=== PATIENT | female | born 1975 | race African-American/Black ===

== ENCOUNTER 2022-07-22 09:49 | Emergency (ER) | payer OTHER ==
[2022-07-22] MEDS ORDERED: ACETAMINOPHEN 325 MG TABLET ONE (10:26)
[2022-07-22] MEDS ORDERED: ONDANSETRON 4 MG/2 ML VIAL ONE (10:26)
[2022-07-22 10:37] LABS: Absolute Lymphocytes (CBC) 2.8 K/uL (0.7-4.9); Hematocrit 39.3 % (36.0-45.0); Lymphocytes % 36.8 % (15.3-44.8); MPV 7.8 fL (7.6-11.3); RBC Red Blood Cell Count 4.51 M/uL (3.86-4.86)
[2022-07-22 10:50] LABS: Arterial Blood Carboxyhemoglob 4.9 % (0-1.5); Blood Gas Oxyhemoglobin 79.3 % (94-97); Blood O2 Saturation 84.6 % (92-98.5)
[2022-07-22 10:55] LABS: Albumin 3.4 g/dL (3.4-5.0); Bilirubin Direct 0.1 mg/dL (0-0.2); Bilirubin Total 0.4 mg/dL (0.2-1.0); Magnesium 2.2 mg/dL (1.8-2.4); Protein, Total 7.6 g/dL (6.4-8.2)
[2022-07-22 14:27] LABS: Blood O2 Saturation 61.5 % (92-98.5)
--- NOTE | 2022-07-22 14:32 | ER ---
Nurse's Notes [facility] Name: Ginger Vogel Age: 47 yrs Sex: Female : 1975 Arrival Date: 07/22/2022 Time: 09:49 Bed 5 Private MD: Diagnosis: Toxic effect of carbon monoxide from other source, accidental (unintentional), initial encounter Presentation: 07/22 09:57 Chief complaint: Patient's son or daughter states: pt was at work at [employer] and they iw were told there was a CO2 leak, pt became dizzy, almost passed out, nauseated, and has a headache, she has been at work since 4 am. Coronavirus screen: At this time, the client does not indicate any symptoms associated with coronavirus-19. Ebola Screen: Patient negative for fever greater than or equal to 101.5 degrees Fahrenheit, and additional compatible Ebola Virus Disease symptoms Patient denies exposure to infectious person. Patient denies travel to an Ebola-affected area in the 21 days before illness onset. No symptoms or risks identified at this time. Initial Sepsis Screen: Does the patient meet any 2 criteria? No. Patient's initial sepsis screen is negative. Does the patient have a suspected source of infection? No. Patient's initial sepsis screen is negative. Risk Assessment: Do you want to hurt yourself or someone else? Patient reports no desire to harm self or others. Onset of symptoms was July 22, 2022. 09:57 Method Of Arrival: Wheelchair 09:57 Acuity: BETO 3 iw Historical: - Allergies: 10:03 PENICILLINS; iw - Home Meds: 10:03 None [Active]; iw - PMHx: 10:03 Anemia; iw - PSHx: 10:03 Cholecystectomy; tubal ligation; iw - Immunization history:: Adult Immunizations unknown. - Social history:: Smoking status: Patient reports the use of cigarette tobacco products, smokes one pack cigarettes per day. Screenin:49 Abuse screen: Denies threats or abuse. Nutritional screening: No deficits noted. jd3 Tuberculosis screening: No symptoms or risk factors identified. Fall Risk Ambulatory Aid- None/Bed Rest/Nurse Assist (0 pts). Gait- Normal/Bed Rest/Wheelchair (0 pts) Mental Status- Oriented to own ability (0 pts). Total Sandoval Fall Scale indicates No Risk (0-24 pts). Assessment: 10:00 General: Appears in no apparent distress. uncomfortable, Behavior is calm, cooperative, jd3 appropriate for age, crying. Pain: Complains of pain in head and abdomen Quality of pain is described as aching, tender. Neuro: Pritchett Agitation-Sedation Scale (RASS): 0 - Alert and Calm Level of Consciousness is awake, alert, obeys commands, confused, Oriented to person, time, situation. Cardiovascular: Denies chest pain, Capillary refill < 3 seconds Patient's skin is warm and dry. Rhythm is regular. Respiratory: Reports shortness of breath Airway is patent Respiratory effort is even, unlabored, Respiratory pattern is regular, symmetrical, Denies cough, shortness of breath. GI: Abdomen is non-distended, Abd is soft and non tender X 4 quads. Reports nausea. : No signs and/or symptoms were reported regarding the genitourinary system. EENT: No signs and/or symptoms were reported regarding the EENT system. Derm: Skin is intact, Skin is dry, Skin is normal, Skin temperature is warm. Musculoskeletal: Circulation, motion, and sensation intact. Range of motion: intact in all extremities. 10:48 Reassessment: Patient appears in no apparent distress at this time. No changes from jd3 previously documented assessment. Patient and/or family updated on plan of care and expected duration. Pain level reassessed. Patient is alert, oriented x 3, equal unlabored respirations, skin warm/dry/pink. pt is now fully oriented and reporting her headache is feeling better. 11:55 Reassessment: Patient appears in no apparent distress at this time. Patient and/or jd3 family updated on plan of care and expected duration. Pain level reassessed. Patient is alert, oriented x 3, equal unlabored respirations, skin warm/dry/pink. pt reported understanding of needing to wait for repeat blood work. resting in bed with family at bedside. diet tray ordered. 13:06 Reassessment: Patient appears in no apparent distress at this time. No changes from jd3 previously documented assessment. Patient and/or family updated on plan of care and expected duration. Pain level reassessed. Patient is alert, oriented x 3, equal unlabored respirations, skin warm/dry/pink. 14:19 Reassessment: Patient appears in no apparent distress at this time. Patient and/or jd3 family updated on plan of care and expected duration. Pain level reassessed. Patient is alert, oriented x 3, equal unlabored respirations, skin warm/dry/pink. Patient states feeling better. 14:48 Reassessment: Patient appears in no apparent distress at this time. Patient and/or jd3 family updated on plan of care and expected duration. Pain level reassessed. Patient is alert, oriented x 3, equal unlabored respirations, skin warm/dry/pink. pt assisted to front of lobby with family. Vital Signs: 09:57 BP 123 / 74; Pulse 72; Resp 16; Temp 97.3; Pulse Ox 100% on R/A; iw 10:48 BP 126 / 91; Pulse 77; Resp 18; Pulse Ox 100% on Non-rebreather mask; jd3 11:57 BP 107 / 74; Pulse 74; Resp 16; Pulse Ox 100% on Non-rebreather mask; jd3 13:06 BP 130 / 92; Pulse 73; Resp 16; Pulse Ox 100% on Non-rebreather mask; jd3 14:19 BP 138 / 86; Pulse 75; Resp 15; Pulse Ox 100% on Non-rebreather mask; jd3 ED Course: 09:49 Patient arrived in ED. as 09:52 Tj Tillman PA is PHCP. [facility] 09:52 Pola Mckeon MD is Attending Physician. [facility] 10:03 Triage completed. iw 10:03 Arm band placed on. iw 10:30 Inserted saline lock: 20 gauge in right antecubital area, using aseptic technique. jd3 Blood collected. 10:33 Jerzy Warren, RN is Primary Nurse. jd3 10:49 Patient has correct armband on for positive identification. Bed in low position. Call j light in reach. Side rails up X2. Adult w/ patient. Client placed on continuous cardiac and pulse oximetry monitoring. NIBP monitoring applied. cafeteria monitor on. Pulse ox on. NIBP on. Warm blanket given. 14:27 ABG Sent. jd3 14:49 No provider procedures requiring assistance completed. IV discontinued, intact, jd3 bleeding controlled, No redness/swelling at site. Pressure dressing applied. Administered Medications: 10:33 Drug: Zofran (Ondansetron) 4 mg Route: IVP; Site: left antecubital; jd3 11:20 Follow up: Response: No adverse reaction jd3 10:34 Drug: Tylenol 650 mg Route: PO; jd3 11:30 Follow up: Response: No adverse reaction jd3 Medication: 10:49 VIS not applicable for this client. jd3 Outcome: 14:31 Discharge ordered by . ramila 14:50 Discharged to home ambulatory, with family. jd3 14:50 Condition: stable 14:50 Discharge instructions given to patient, Instructed on discharge instructions, follow up and referral plans. Demonstrated understanding of instructions, follow-up care. 14:50 Patient left the ED. jd3 Signatures: Tj Tillman PA PA jmm Martinez, Amelia as Williams, Irene, RN RN iw Davies, Jonathon, RN RN jd3 Corrections: (The following items were deleted from the chart) 11:57 10:48 Reassessment: Patient appears in no apparent distress at this time. No changes jd3 from previously documented assessment. Patient and/or family updated on plan of care and expected duration. Pain level reassessed. Patient is alert, oriented x 3, equal unlabored respirations, skin warm/dry/pink. jd3 14:19 10:48 BP 126 / 91; Pulse 77bpm; Resp 18bpm; Pulse Ox 100% RA; jd3 jd3 14:19 11:57 BP 107 / 74; Pulse 74bpm; Resp 16bpm; Pulse Ox 100% RA; jd3 jd3 14:19 13:06 BP 130 / 92; Pulse 73bpm; Resp 16bpm; Pulse Ox 100% RA; jd3 jd3
--- NOTE | 2022-07-22 14:32 | EDPHYS ---
Physician Documentation [facility] Name: Ginger Vogel Age: 47 yrs Sex: Female : 1975 Arrival Date: 07/22/2022 Time: 09:49 Bed 5 Private MD: ED Physician Pola Mckeon HPI: 07/22 09:54 This 47 yrs old Black Female presents to ER via Wheelchair with complaints of Weakness, jmm co2 exposure. 09:54 This a 47-year-old female with history of anemia the presents emerged department with jmm complaints of headache, weakness, dizziness beginning earlier this morning. Patient states she was exposed to a gas leak while at work.. Historical: - Allergies: 10:03 PENICILLINS; iw - Home Meds: 10:03 None [Active]; iw - PMHx: 10:03 Anemia; iw - PSHx: 10:03 Cholecystectomy; tubal ligation; iw - Immunization history:: Adult Immunizations unknown. - Social history:: Smoking status: Patient reports the use of cigarette tobacco products, smokes one pack cigarettes per day. ROS: 09:54 Constitutional: Positive for fatigue. jmm 09:54 Respiratory: Positive for shortness of breath. 09:54 Neuro: Positive for dizziness, headache. 09:54 All other systems are negative. Exam: 09:54 Constitutional: This is a well developed, well nourished patient who is awake, alert, jmm and in no acute distress. Head/Face: atraumatic. Eyes: EOMI, no conjunctival erythema appreciated ENT: Moist Mucus Membranes Neck: Trachea midline, Supple Chest/axilla: Normal chest wall appearance and motion. Cardiovascular: Regular rate and rhythm. No edema appreciated Respiratory: Normal respirations, no respiratory distress appreciated Abdomen/GI: Non distended Back: Normal ROM Skin: General appearance color normal MS/ Extremity: Moves all extremities, no obvious deformities appreciated, no edema noted to the lower extremities Neuro: Awake and alert Psych: Behavior is normal, Mood is normal, Patient is cooperative and pleasant Vital Signs: 09:57 BP 123 / 74; Pulse 72; Resp 16; Temp 97.3; Pulse Ox 100% on R/A; iw 10:48 BP 126 / 91; Pulse 77; Resp 18; Pulse Ox 100% on Non-rebreather mask; jd3 11:57 BP 107 / 74; Pulse 74; Resp 16; Pulse Ox 100% on Non-rebreather mask; jd3 13:06 BP 130 / 92; Pulse 73; Resp 16; Pulse Ox 100% on Non-rebreather mask; jd3 14:19 BP 138 / 86; Pulse 75; Resp 15; Pulse Ox 100% on Non-rebreather mask; jd3 MDM: 09:54 Patient medically screened. [facility] 14:30 Data reviewed: vital signs, nurses notes. Counseling: I had a detailed discussion with [facility] the patient and/or guardian regarding: the historical points, exam findings, and any diagnostic results supporting the discharge/admit diagnosis, the need for outpatient follow up, to return to the emergency department if symptoms worsen or persist or if there are any questions or concerns that arise at home. 18:29 ED course: Patient was observed for 4 hours. Carbon monoxide level reduced to normal [facility] levels. Patient states feeling much better.. 07/22 09:55 Order name: Basic Metabolic Panel; Complete Time: 11:19 [facility] 07/22 09:55 Order name: CBC with Diff; Complete Time: 11:19 [facility] 07/22 09:55 Order name: LFT's; Complete Time: 11:19 [facility] 07/22 09:55 Order name: Magnesium; Complete Time: 11:19 [facility] 07/22 09:55 Order name: NT PRO-BNP; Complete Time: 11:19 [facility] 07/22 09:55 Order name: PT-INR; Complete Time: 11:19 [facility] 07/22 09:55 Order name: Troponin HS; Complete Time: 11:19 [facility] 07/22 09:55 Order name: EKG; Complete Time: 09:56 [facility] 07/22 09:55 Order name: Cardiac monitoring; Complete Time: 10:24 [facility] 07/22 09:55 Order name: ABG; Complete Time: 11:30 [facility] 07/22 11:46 Order name: Diet Regular; Complete Time: 11:46 07/22 14:15 Order name: ABG eb 07/22 09:55 Order name: EKG - Nurse/Tech; Complete Time: 10:32 [facility] 07/22 09:55 Order name: IV Saline Lock; Complete Time: 10:24 [facility] 07/22 09:55 Order name: Labs collected and sent; Complete Time: 10:24 [facility] 07/22 09:55 Order name: O2 Per Protocol; Complete Time: 10:24 [facility] 07/22 09:55 Order name: O2 Sat Monitoring; Complete Time: : [facility] 07/22 10:00 Order name: Misc. Order: non rebreather; Complete Time: 10:24 [facility] Administered Medications: 10:33 Drug: Zofran (Ondansetron) 4 mg Route: IVP; Site: left antecubital; jd3 11:20 Follow up: Response: No adverse reaction jd3 10:34 Drug: Tylenol 650 mg Route: PO; jd3 11:30 Follow up: Response: No adverse reaction jd3 Disposition: 15:11 Co-signature as Attending Physician, Pola Mckeon MD. rn Disposition Summary: 07/22/22 14:31 Discharge Ordered Location: Home [facility] Condition: Stable [facility] Diagnosis - Toxic effect of carbon monoxide from other source, accidental (unintentional), jm initial encounter Followup: [facility] - With: Private Physician - When: 2 - 3 days - Reason: Recheck today's complaints, Continuance of care, Re-evaluation by your physician Discharge Instructions: - Discharge Summary Sheet [facility] - Carbon Monoxide Poisoning, [id number] [facility] Forms: - Medication Reconciliation Form [facility] - Thank You Letter [facility] - Antibiotic Education [facility] - Work release form [facility] - Prescription Opioid Use [facility] Signatures: Dispatcher [employer] Tj Srivastava PA PA jmm Williams, Irene, RN RN iw Nieto, Roman, MD MD rn Davies, Jonathon, RN RN jd3
[2022-07-22 15:03] VITALS: TEMP 97.3; O2SAT 100
[2022-07-22 15:17] VITALS: BP 138/86
--- NOTE | 2022-07-22 16:52 | EKG ---
Test Date: 2022-07-22 Test Time: 10:25:55 Coordinate Measuring Machine Operator: JOSE MEASUREMENT RESULTS: Intervals: Rate: 82 DE: 162 QRSD: 64 QT: 370 QTc: 432 Sylvia: P: 70 DE: 162 QRS: 66 T: 66 INTERPRETIVE STATEMENTS: Normal sinus rhythm Normal ECG No previous ECG available for comparison Electronically Signed On 07-22-22 16:51:35 CDT by Andry Salgado
== END 2022-07-22 14:50 | disposition home or self-care (01) ==
LOC: ER 09:49
DX: T58.8X1A Toxic effect of carbon monoxide from other source, accidental (unintentional), initial encounter (principal); F17.210 Nicotine dependence, cigarettes, uncomplicated; Z88.0 Allergy status to penicillin
CPT/HCPCS: 93005; 85025; 80048; 36415; 83735; 85610; 80076; 84484; 83880; 82805 ×2; 96374; 99284; J2405